=== PATIENT | female | born 1995 | race Native Hawaiian/Other Pacific Islander ===

== ENCOUNTER 2019-12-30 23:36 | Emergency (ER) | payer SELFPAY ==
[2019-12-31 01:55] LABS: Hematocrit 34.1 % (30.3-42.9); Hemoglobin 10.6 gm/dl (10.1-14.3); Mean Corpuscular HGB Conc 31 % (30-34); Mean Corpuscular Volume 74 fl (79-97); Platelet Count 382 K/mm3 (140-440); Red Blood Count 4.59 M/mm3 (3.65-5.03); Red Cell Distribution Width 17.3 % (13.2-15.2)
[2019-12-31 02:20] LABS: Alanine Aminotransferase 9 units/L (7-56); Albumin 4.8 g/dL (3.9-5); BUN/Creatinine Ratio 10; Blood Urea Nitrogen 9 mg/dL (7-17); Calcium 9.8 mg/dL (8.4-10.2); Hemolysis Index 17
[2019-12-31] MEDS ORDERED: SODIUM CHLORIDE 0.9% 1000 ML 1,000 ML ONE (02:26)
[2019-12-31] MEDS ORDERED: FAMOTIDINE 20 MG/2 ML INJ IV ONE (02:30)
[2019-12-31] MEDS ORDERED: METOCLOPRAMIDE 10 MG/2 ML INJ IV ONE (02:30)
[2019-12-31] MEDS ORDERED: diphenhydrAMINE 50 MG/ML VIAL IV ONE (02:30)
[2019-12-31] MEDS ORDERED: diphenhydrAMINE 50 MG/ML VIAL ONE (02:33)
[2019-12-31] MEDS ORDERED: METOCLOPRAMIDE 10 MG/2 ML INJ ONE (02:33)
[2019-12-31 02:41] LABS: Eosinophils % (Manual) 0 % (0.0-4.3); Total Cells Counted 100
[2019-12-31 02:43] LABS: Hypochromasia Few
[2019-12-31 02:44] LABS: Giant Platelets Few; Ovalocytes Few; Platelet Estimate Consistent w Auto; Stomatocytes Rare
[2019-12-31 04:18] LABS: Bacteria,Urine 1+ /HPF (Negative); Bilirubin,Urine NEG (Negative); Blood,Urine NEG (Negative); Color,Urine Yellow (Yellow); Mucus,Urine 2+ /HPF; Urobilinogen,Urine < 2.0 mg/dL (<2.0)
--- NOTE | 2019-12-31 04:27 | Emergency Department Report ---
ED N/V/D HPI - General Chief complaint: Abdominal Pain Stated complaint: ABDOMINAL PAIN Source: patient Mode of arrival: Ambulatory Limitations: No Limitations - History of Present Illness Initial comments: Patient is 24-year-old [place] female with past medical history of chronic anxiety who presents to the ED with complaint of acute onset persistent intractable nausea and vomiting with diffuse abdominal pain for the last 6 hours. Patient states that her symptoms started after eating food from a restaurant. Patient denies fever, chills, dizziness, diarrhea, dysuria, urinary frequency and urgency, headache, chest pain, shortness of breath, nausea bleeding, vaginal discharge, syncope, headache or hematochezia and hematemesis. MD complaint: nausea, vomiting, abdominal pain -: Sudden Description of Vomiting: food contents, watery Description of Diarrhea: other (None) Associated Abdominal Pain: Yes (diffuse) Location: diffuse Radiation: none Severity: severe Pain Scale: 7 Quality: cramping, aching, sharp Consistency: intermittent Improves with: none Worsens with: vomiting Context: possible food poisoning Associated Symptoms: denies other symptoms, loss of appetite, malaise, nausea/vomiting. denies: myalgias, chest pain, cough, diaphoresis, fever/chills, headaches, rash, dysuria, shortness of breath, syncope - Related Data Previous Rx's Medication Instructions Recorded Last Taken Type Dicyclomine [Bentyl] 20 mg PO Q6H PRN #24 tablet 12/31/19 Unknown Rx Famotidine [Pepcid] 20 mg PO Q12H #30 tablet 12/31/19 Unknown Rx Promethazine HCl [Phenergan SUPPOS] 25 mg RC Q6H PRN #12 supp.rect 12/31/19 Unknown Rx Promethazine [Phenergan] 25 mg PO Q6HR PRN #24 tab 12/31/19 Unknown Rx Allergies Allergy/AdvReac Type Severity Reaction Status Date / Time ondansetron [From Zofran] AdvReac Vomiting Verified 12/30/19 23:38 Penicillins AdvReac Vomiting Verified 12/30/19 23:38 ED Review of Systems ROS: Stated complaint: ABDOMINAL PAIN Other details as noted in HPI Constitutional: denies: chills, fever Eyes: denies: eye pain, eye discharge, vision change ENT: denies: ear pain, throat pain Respiratory: denies: cough, shortness of breath, wheezing Cardiovascular: denies: chest pain, palpitations Endocrine: no symptoms reported Gastrointestinal: abdominal pain, nausea, vomiting. denies: diarrhea Genitourinary: denies: urgency, dysuria, discharge Musculoskeletal: denies: back pain, joint swelling, arthralgia Skin: denies: rash, lesions Neurological: denies: headache, weakness, paresthesias Psychiatric: denies: anxiety, depression Hematological/Lymphatic: denies: easy bleeding, easy bruising ED Past Medical Hx - Past Medical History Previous Medical History?: No - Surgical History Past Surgical History?: Yes Additional Surgical History: ECTOPIC - Social History Smoking Status: Never Smoker Substance Use Type: None - Medications Home Medications: Home Medications Medication Instructions Recorded Confirmed Last Taken Type Dicyclomine [Bentyl] 20 mg PO Q6H PRN #24 tablet 12/31/19 Unknown Rx Famotidine [Pepcid] 20 mg PO Q12H #30 tablet 12/31/19 Unknown Rx Promethazine HCl [Phenergan SUPPOS] 25 mg RC Q6H PRN #12 supp.rect 12/31/19 Unknown Rx Promethazine [Phenergan] 25 mg PO Q6HR PRN #24 tab 12/31/19 Unknown Rx ED Physical Exam - General Limitations: No Limitations General appearance: alert, in no apparent distress - Head Head exam: Present: atraumatic, normocephalic, normal inspection - Eye Eye exam: Present: normal appearance, PERRL, EOMI Pupils: Present: normal accommodation - ENT ENT exam: Present: normal exam, normal orophraynx, mucous membranes moist, TM's normal bilaterally, normal external ear exam - Neck Neck exam: Present: normal inspection, full ROM. Absent: tenderness - Respiratory Respiratory exam: Present: normal lung sounds bilaterally. Absent: respiratory distress, wheezes, rales, rhonchi, chest wall tenderness, accessory muscle use, decreased breath sounds - Cardiovascular Cardiovascular Exam: Present: regular rate, normal rhythm, normal heart sounds. Absent: systolic murmur, diastolic murmur, rubs, gallop - GI/Abdominal GI/Abdominal exam: Present: soft, tenderness (mildly diffuse tenderness), normal bowel sounds. Absent: guarding, rebound - Extremities Exam Extremities exam: Present: normal inspection, full ROM, normal capillary refill - Back Exam Back exam: Present: normal inspection, full ROM. Absent: tenderness, CVA tenderness (R), muscle spasm, paraspinal tenderness - Neurological Exam Neurological exam: Present: alert, oriented X3, normal gait, reflexes normal - Psychiatric Psychiatric exam: Present: normal affect, normal mood, anxious - Skin Skin exam: Present: warm, dry, intact, normal color. Absent: rash ED Course Vital Signs 12/30/19 12/31/19 23:43 00:55 Temperature 97.6 F Respiratory 18 Rate Blood Pressure 119/47 O2 Sat by Pulse 100 Oximetry ED Medical Decision Making - Lab Data Result diagrams: 12/31/19 01:09 12/31/19 01:09 - Medical Decision Making This is a 24-year-old female who presented to the ED with acute onset persistent nausea and vomiting with diffuse abdominal pain for 6 hours after eating at a restaurant. In the ED, patient is alert and oriented 3 and is not in distress but anxious. Patient was treated for nausea and vomiting and also given normal saline 1 L IV bolus. Lab test results were reviewed and showed acute leukocytosis of 11,500 and hyperglycemia 167 mg/dL. The rest of the left wrist is also unremarkable including urinalysis. Patient's symptoms are likely due to a viral gastroenteritis from food poisoning. Other differential diagnosis were also considered including urinary tract infection, dehydration, gallstones, gastritis, GERD as well as . On reevaluation, patient's nausea and vomiting has resolved, patient sleeping comfortably in the room in no distress. Patient was discharged home on antiemetics, antacids, and pain medications and advised follow-up with her primary care physician in 5-7 days for reevaluation, meanwhile maintain a clear liquid diet for 12-24 hours. Patient was advised to return to the ED immediately if symptoms get worse. - Differential Diagnosis Gastroenteritis; GERD; Gastritis; ; UTI; Pancreatitis; Gallstones Critical care attestation.: If time is entered above; I have spent that time in minutes in the direct care of this critically ill patient, excluding procedure time. ED Disposition Clinical Impression: Nausea and vomiting in adult, Viral gastroenteritis Abdominal pain Qualifiers: Abdominal location: generalized Qualified Code(s): R10.84 - Generalized abdominal pain Disposition: TO HOME OR SELFCARE Is pt being admited?: No Does the pt Need Aspirin: No Condition: Stable Instructions: Abdominal Pain (ED), Gastroenteritis (ED), Acute Nausea and Vomiting (ED) Additional Instructions: Maintain a clear liquid diet for 12-24 hours, take medications as needed for nausea and vomiting and pain. Follow-up with your primary care physician in 5-7 days for reevaluation or return to the ED immediately if symptoms get worse. Prescriptions: Dicyclomine [Bentyl] 20 mg PO Q6H PRN #24 tablet PRN Reason: abdominal pain Famotidine [Pepcid] 20 mg PO Q12H #30 tablet Promethazine [Phenergan] 25 mg PO Q6HR PRN #24 tab PRN Reason: Nausea Promethazine HCl [Phenergan SUPPOS] 25 mg RC Q6H PRN #12 supp.rect PRN Reason: Nausea Referrals: [facility] [Outside] - 3-5 Days Forms: Work/School Release Form(ED) Time of Disposition: 04:27 Print Language: ARABIC
[2019-12-31 04:50] VITALS: BP 140/51
== END 2019-12-31 04:50 | disposition home or self-care (01) ==
LOC: ED 23:36
DX: K21.9 Gastro-esophageal reflux disease without esophagitis (principal)
CPT/HCPCS: 36415; 80053; 81001; 83690; 84703; 85007; 85025; 96374; 96375; 99283; J1200; J2765; J7030

== ENCOUNTER 2020-03-21 15:44 | Emergency (ER) | payer SELFPAY ==
[2020-03-21 16:06] VITALS: BP 109/65
[2020-03-21] MEDS ORDERED: LIDOCAINE JELLY (2%) 5 ML TOPICAL TP ONE (17:36)
[2020-03-21] MEDS ORDERED: KETOROLAC 30 MG/1 ML INJ IM ONE (17:36)
--- NOTE | 2020-03-21 17:37 | Emergency Department Report ---
ED Abdominal Pain HPI - General Chief Complaint: Rectal Pain Stated Complaint: HERNIA PAIN Time Seen by Provider: 03/21/20 17:18 Source: patient Mode of arrival: Ambulatory Limitations: No Limitations - History of Present Illness Initial Comments: This is a 24-year-old -[place] Citizen female who presents to the emergency room with rectal pain that started last night. Past medical history of GERD. Patient states she noticed some swelling and redness around her rectum. Reports worsening pain while sitting or movement. Denies bleeding, constipation, or tarry stools. MD Complaint: other (Rectal pain) -: Last night Severity scale (0 -10): 10 Quality: stabbing Consistency: constant Worsens With: movement, other (sitting) Associated Symptoms: denies other symptoms - Related Data Previous Rx's Medication Instructions Recorded Last Taken Type Dicyclomine [Bentyl] 20 mg PO Q6H PRN #24 tablet 12/31/19 Unknown Rx Famotidine [Pepcid] 20 mg PO Q12H #30 tablet 12/31/19 Unknown Rx Promethazine HCl [Phenergan SUPPOS] 25 mg RC Q6H PRN #12 supp.rect 12/31/19 Unknown Rx Promethazine [Phenergan] 25 mg PO Q6HR PRN #24 tab 12/31/19 Unknown Rx Hydrocortisone [Anucort-HC SUPPOS] 25 mg RC BID #14 supp.rect 03/21/20 Unknown Rx Hydrocortisone [Proctosol-Hc 2.5% 10 applic TP BID #1 crm.pe.desire 03/21/20 Unknown Rx TOP CREAM] Allergies Allergy/AdvReac Type Severity Reaction Status Date / Time ondansetron [From Zofran] AdvReac Vomiting Verified 03/21/20 15:45 Penicillins AdvReac Vomiting Verified 03/21/20 15:45 ED Review of Systems ROS: Stated complaint: HERNIA PAIN Other details as noted in HPI Constitutional: denies: chills, fever Respiratory: denies: cough, shortness of breath, wheezing Cardiovascular: denies: chest pain, palpitations Gastrointestinal: other (rectal pain). denies: abdominal pain, nausea, diarrhea Skin: denies: rash, lesions Neurological: denies: headache, weakness, paresthesias Psychiatric: denies: anxiety, depression ED Past Medical Hx - Past Medical History Previous Medical History?: Yes Hx Psychiatric Treatment: Yes (Anxiety) - Surgical History Additional Surgical History: ECTOPIC - Social History Smoking Status: Current Every Day Smoker Substance Use Type: None - Medications Home Medications: Home Medications Medication Instructions Recorded Confirmed Last Taken Type Dicyclomine [Bentyl] 20 mg PO Q6H PRN #24 tablet 12/31/19 Unknown Rx Famotidine [Pepcid] 20 mg PO Q12H #30 tablet 12/31/19 Unknown Rx Promethazine HCl [Phenergan SUPPOS] 25 mg RC Q6H PRN #12 supp.rect 12/31/19 Unknown Rx Promethazine [Phenergan] 25 mg PO Q6HR PRN #24 tab 12/31/19 Unknown Rx Hydrocortisone [Anucort-HC SUPPOS] 25 mg RC BID #14 supp.rect 03/21/20 Unknown Rx Hydrocortisone [Proctosol-Hc 2.5% 10 applic TP BID #1 crm.pe.desire 03/21/20 Unknown Rx TOP CREAM] ED Physical Exam - General Limitations: No Limitations General appearance: alert, in no apparent distress - Respiratory Respiratory exam: Present: normal lung sounds bilaterally. Absent: respiratory distress - Cardiovascular Cardiovascular Exam: Present: regular rate, normal rhythm. Absent: systolic murmur, diastolic murmur, rubs, gallop - GI/Abdominal GI/Abdominal exam: Present: soft, normal bowel sounds. Absent: distended, tenderness, guarding, rebound, rigid - Rectal Rectal exam: Present: normal inspection, hemorrhoids (Beefy red external hemorrhoids, TTP). Absent: heme (-) stool, black stool, bloody stool, fecal impaction, mass, tenderness - Extremities Exam Extremities exam: Present: normal inspection - Neurological Exam Neurological exam: Present: alert, oriented X3, normal gait - Psychiatric Psychiatric exam: Present: normal affect, normal mood - Skin Skin exam: Present: warm, dry, intact, normal color. Absent: rash ED Course Vital Signs 03/21/20 03/21/20 16:01 19:39 Temperature 97.7 F Pulse Rate 104 H 89 Respiratory 20 16 Rate Blood Pressure 109/65 O2 Sat by Pulse 99 Oximetry ED Medical Decision Making - Medical Decision Making This is a 24-year-old female who presents to the emergency room with rectal pain since last night. Vitals are stable and patient. Patient has history and exam is most consistent with external hemorrhoids for cause of pain. There were no signs of thrombosed hemorrhoids. Symptoms are least likely related to anal rectal abscess, rectal foreign body, anal fissure, fistula, and proctitis. Patient given instructions on bowel regimen and sitz bath for 15 minutes 3 times a day and after each bowel movement. Start hydrocortisone suppositories and Proctofoam. Patient discharged home with strict return instructions. Critical care attestation.: If time is entered above; I have spent that time in minutes in the direct care of this critically ill patient, excluding procedure time. ED Disposition Clinical Impression: Hemorrhoids, external Disposition: DC-01 TO HOME OR SELFCARE Is pt being admited?: No Condition: Stable Instructions: Hemorrhoids (ED), High Fiber Diet (ED), Sitz Bath (GEN) Additional Instructions: Increase fluid intake to 1L-2L per day. Increase fiber intake by food or taking Metamucil. Start doing sitz bath for 15 minutes 3 times a day and after each bowel movement Prescriptions: Hydrocortisone [Anucort-HC SUPPOS] 25 mg RC BID #14 supp.rect Hydrocortisone [Proctosol-Hc 2.5% TOP CREAM] 10 applic TP BID #1 crm.pe.desire Referrals: [facility] [Outside] - 3-5 Days [facility] [Outside] - 3-5 Days AIXA SNIDER MD [Staff Physician] - 3-5 Days Time of Disposition: 19:19
[2020-03-21] MEDS ORDERED: HYDROcodone/ACETAMINOPHEN 5-325 MG TAB PO ONE (19:29)
== END 2020-03-21 19:39 | disposition home or self-care (01) ==
LOC: ED 15:44
DX: K64.4 Residual hemorrhoidal skin tags (principal); F41.9 Anxiety disorder, unspecified; F17.200 Nicotine dependence, unspecified, uncomplicated; Z79.899 Other long term (current) drug therapy
CPT/HCPCS: 99283; J1885

== ENCOUNTER 2020-04-23 13:42 | Emergency (ER) | payer SELFPAY ==
[2020-04-23 16:16] LABS: Mean Corpuscular HGB Conc 29 % (30-34); Mean Corpuscular Volume 75 fl (79-97); Platelet Count 448 K/mm3 (140-440); Red Blood Count 5.18 M/mm3 (3.65-5.03); Red Cell Distribution Width 17.4 % (13.2-15.2)
[2020-04-23] MEDS ORDERED: MORPHINE 4 MG/1 ML INJ IV ONE (16:20)
[2020-04-23] MEDS ORDERED: SODIUM CHLORIDE 0.9% 1000 ML 1,000 ML IV ONE (16:20)
[2020-04-23] MEDS ORDERED: METOCLOPRAMIDE 10 MG/2 ML INJ IV ONE (16:20)
[2020-04-23] MEDS ORDERED: diphenhydrAMINE 50 MG/ML VIAL IV ONE (16:20)
[2020-04-23 16:23] LABS: Hematocrit 39.1 % (30.3-42.9); Hemoglobin 11.5 gm/dl (10.1-14.3)
--- NOTE | 2020-04-23 16:24 | Emergency Department Report ---
ED N/V/D HPI - General Chief complaint: Abdominal Pain Stated complaint: VOMITING Time Seen by Provider: 04/23/20 16:05 Source: patient, EMS Mode of arrival: Ambulatory Limitations: No Limitations - History of Present Illness Initial comments: Patient is a 24-year-old female presents emergency room with complaints of nausea, vomiting, diarrhea that began 5 hours prior to arrival. She has associated lower abdominal pain. She denies any urinary symptoms, vaginal discharge, hematochezia, hematemesis, melena. She denies any sick contacts or recent travel. She denies any recent antibiotics. She has a past medical history of anxiety. She has an allergy to Zofran and penicillin. She states her last menstrual cycle was 03/03/2020. - Related Data Previous Rx's Medication Instructions Recorded Last Taken Type Dicyclomine [Bentyl] 20 mg PO Q6H PRN #24 tablet 12/31/19 Unknown Rx Famotidine [Pepcid] 20 mg PO Q12H #30 tablet 12/31/19 Unknown Rx Promethazine HCl [Phenergan SUPPOS] 25 mg RC Q6H PRN #12 supp.rect 12/31/19 Unknown Rx Promethazine [Phenergan] 25 mg PO Q6HR PRN #24 tab 12/31/19 Unknown Rx Hydrocortisone [Anucort-HC SUPPOS] 25 mg RC BID #14 supp.rect 03/21/20 Unknown Rx Hydrocortisone [Proctosol-Hc 2.5% 10 applic TP BID #1 crm.pe.desire 03/21/20 Unknown Rx TOP CREAM] Hyoscyamine Subl [Levsin Sl 0.125 0.125 mg SL Q6HR PRN #10 tab 04/23/20 Unknown Rx TAB] Metoclopramide [Reglan] 10 mg PO Q8HR PRN #12 tab 04/23/20 Unknown Rx Allergies Allergy/AdvReac Type Severity Reaction Status Date / Time ondansetron [From Zofran] AdvReac Vomiting Verified 03/21/20 15:45 Penicillins AdvReac Vomiting Verified 03/21/20 15:45 ED Review of Systems ROS: Stated complaint: VOMITING Other details as noted in HPI Comment: All other systems reviewed and negative ED Past Medical Hx - Past Medical History Previous Medical History?: Yes Hx Psychiatric Treatment: Yes (Anxiety) - Surgical History Past Surgical History?: Yes Additional Surgical History: ECTOPIC - Social History Smoking Status: Current Every Day Smoker Substance Use Type: None - Medications Home Medications: Home Medications Medication Instructions Recorded Confirmed Last Taken Type Dicyclomine [Bentyl] 20 mg PO Q6H PRN #24 tablet 12/31/19 Unknown Rx Famotidine [Pepcid] 20 mg PO Q12H #30 tablet 12/31/19 Unknown Rx Promethazine HCl [Phenergan SUPPOS] 25 mg RC Q6H PRN #12 supp.rect 12/31/19 Unknown Rx Promethazine [Phenergan] 25 mg PO Q6HR PRN #24 tab 12/31/19 Unknown Rx Hydrocortisone [Anucort-HC SUPPOS] 25 mg RC BID #14 supp.rect 03/21/20 Unknown Rx Hydrocortisone [Proctosol-Hc 2.5% 10 applic TP BID #1 crm.pe.desire 03/21/20 Unknown Rx TOP CREAM] Hyoscyamine Subl [Levsin Sl 0.125 0.125 mg SL Q6HR PRN #10 tab 04/23/20 Unknown Rx TAB] Metoclopramide [Reglan] 10 mg PO Q8HR PRN #12 tab 04/23/20 Unknown Rx ED Physical Exam - General Limitations: No Limitations General appearance: alert, in no apparent distress - Head Head exam: Present: atraumatic, normocephalic - Eye Eye exam: Present: normal appearance - ENT ENT exam: Present: mucous membranes moist - Respiratory Respiratory exam: Present: normal lung sounds bilaterally. Absent: respiratory distress, wheezes, rales, rhonchi, stridor, chest wall tenderness, accessory muscle use, decreased breath sounds, prolonged expiratory - Cardiovascular Cardiovascular Exam: Present: regular rate, normal rhythm, normal heart sounds. Absent: systolic murmur, diastolic murmur, rubs, gallop - GI/Abdominal GI/Abdominal exam: Present: soft, tenderness (generalized lower), normal bowel sounds. Absent: distended, guarding, rebound, rigid - Neurological Exam Neurological exam: Present: alert, oriented X3 - Psychiatric Psychiatric exam: Present: normal affect, normal mood - Skin Skin exam: Present: warm, dry, intact ED Course Vital Signs 04/23/20 04/23/20 14:00 20:26 Temperature 98.2 F 98.5 F Pulse Rate 70 66 Respiratory 14 18 Rate Blood Pressure 133/73 Blood Pressure 133/73 136/85 [Right] O2 Sat by Pulse 99 98 Oximetry - Reevaluation(s) Reevaluation #1: 04/23/20 18:[address] regarding the delay in CT, she states that they had a code stroke and will take the patient next ED Medical Decision Making - Lab Data Result diagrams: 04/23/20 15:39 04/23/20 15:39 Lab Results 04/23/20 04/23/20 04/23/20 Range/Units 15:39 15:39 15:39 WBC 16.3 H (4.5-11.0) K/mm3 RBC 5.18 H (3.65-5.03) M/mm3 Hgb 11.5 (10.1-14.3) gm/dl Hct 39.1 (30.3-42.9) % MCV 75 L (79-97) fl MCH 22 L (28-32) pg MCHC 29 L (30-34) % RDW 17.4 H (13.2-15.2) % Plt Count 448 H (140-440) K/mm3 Add Manual Diff Complete Total Counted 100 Seg Neutrophils % Lab Tester Seg Neuts % (Manual) 85.0 H (40.0-70.0) % Band Neutrophils % 0 % Lymphocytes % (Manual) 11.0 L (13.4-35.0) % Reactive Lymphs % (Man) 0 % Monocytes % (Manual) 3.0 (0.0-7.3) % Eosinophils % (Manual) 0 (0.0-4.3) % Basophils % (Manual) 1.0 (0.0-1.8) % Metamyelocytes % 0 % Myelocytes % 0 % Promyelocytes % 0 % Blast Cells % 0 % Nucleated RBC % Not Reportable Seg Neutrophils # Man 13.9 H (1.8-7.7) K/mm3 Band Neutrophils # 0.0 K/mm3 Lymphocytes # (Manual) 1.8 (1.2-5.4) K/mm3 Abs React Lymphs (Man) 0.0 K/mm3 Monocytes # (Manual) 0.5 (0.0-0.8) K/mm3 Eosinophils # (Manual) 0.0 (0.0-0.4) K/mm3 Basophils # (Manual) 0.2 H (0.0-0.1) K/mm3 Metamyelocytes # 0.0 K/mm3 Myelocytes # 0.0 K/mm3 Promyelocytes # 0.0 K/mm3 Blast Cells # 0.0 K/mm3 WBC Morphology Not Reportable Hypersegmented Neuts Not Reportable Hyposegmented Neuts Not Reportable Hypogranular Neuts Not Reportable Smudge Cells Not Reportable Toxic Granulation Not Reportable Toxic Vacuolation Not Reportable Dohle Bodies Not Reportable Pelger-Huet Anomaly Not Reportable James Rods Not Reportable Platelet Estimate Consistent w auto Clumped Platelets Not Reportable Plt Clumps, EDTA Not Reportable Large Platelets Few Giant Platelets Not Reportable Platelet Satelliting Not Reportable Plt Morphology Comment Not Reportable RBC Morphology Not Reportable Dimorphic RBCs Not Reportable Polychromasia Rare Hypochromasia Not Reportable Poikilocytosis Not Reportable Anisocytosis 1+ Microcytosis Few Macrocytosis Few Spherocytes Not Reportable Pappenheimer Bodies Not Reportable Sickle Cells Not Reportable Target Cells Not Reportable Tear Drop Cells Not Reportable Ovalocytes Few Stomatocytes Rare Helmet Cells Not Reportable [place] Bodies Not Reportable [place] Rings Not Reportable [place] Cells Not Reportable Bite Cells Not Reportable Crenated Cell Not Reportable Elliptocytes Not Reportable Acanthocytes (Spur) Not Reportable Rouleaux Not Reportable Hemoglobin C Crystals Not Reportable Schistocytes Not Reportable Malaria parasites Not Reportable Francisco Bodies Not Reportable Hem Pathologist Commnt No Sodium 143 (137-145) mmol/L Potassium 4.1 (3.6-5.0) mmol/L Chloride 99.4 (98-107) mmol/L Carbon Dioxide 20 L (22-30) mmol/L Anion Gap 28 mmol/L BUN 10 (7-17) mg/dL Creatinine 0.9 (0.7-1.2) mg/dL Estimated GFR > 60 ml/min BUN/Creatinine Ratio 11 % Glucose 107 H (65-100) mg/dL Calcium 10.2 (8.4-10.2) mg/dL Total Bilirubin 0.50 (0.1-1.2) mg/dL AST 19 (5-40) units/L ALT 11 (7-56) units/L Alkaline Phosphatase 86 (35-129) units/L Total Protein 8.9 H (6.3-8.2) g/dL Albumin 5.1 H (3.9-5) g/dL Albumin/Globulin Ratio 1.3 % Lipase 13 (13-60) units/L HCG, Qual Negative (Negative) Urine Color (Yellow) Urine Turbidity (Clear) Urine pH (5.0-7.0) Ur Specific Carlotta (1.003-1.030) Urine Protein (Negative) mg/dL Urine Glucose (UA) (Negative) mg/dL Urine Ketones (Negative) mg/dL Urine Blood (Negative) Urine Nitrite (Negative) Urine Bilirubin (Negative) Urine Urobilinogen (<2.0) mg/dL Ur Leukocyte Esterase (Negative) Urine WBC (Auto) (0.0-6.0) /HPF Urine RBC (Auto) (0.0-6.0) /HPF U Epithel Cells (Auto) (0-13.0) /HPF Urine Mucus /HPF 05/26/20 Range/Units 18:18 WBC (4.5-11.0) K/mm3 RBC (3.65-5.03) M/mm3 Hgb (10.1-14.3) gm/dl Hct (30.3-42.9) % MCV (79-97) fl MCH (28-32) pg MCHC (30-34) % RDW (13.2-15.2) % Plt Count (140-440) K/mm3 Add Manual Diff Total Counted Seg Neutrophils % Seg Neuts % (Manual) (40.0-70.0) % Band Neutrophils % % Lymphocytes % (Manual) (13.4-35.0) % Reactive Lymphs % (Man) % Monocytes % (Manual) (0.0-7.3) % Eosinophils % (Manual) (0.0-4.3) % Basophils % (Manual) (0.0-1.8) % Metamyelocytes % % Myelocytes % % Promyelocytes % % Blast Cells % % Nucleated RBC % Seg Neutrophils # Man (1.8-7.7) K/mm3 Band Neutrophils # K/mm3 Lymphocytes # (Manual) (1.2-5.4) K/mm3 Abs React Lymphs (Man) K/mm3 Monocytes # (Manual) (0.0-0.8) K/mm3 Eosinophils # (Manual) (0.0-0.4) K/mm3 Basophils # (Manual) (0.0-0.1) K/mm3 Metamyelocytes # K/mm3 Myelocytes # K/mm3 Promyelocytes # K/mm3 Blast Cells # K/mm3 WBC Morphology Hypersegmented Neuts Hyposegmented Neuts Hypogranular Neuts Smudge Cells Toxic Granulation Toxic Vacuolation Dohle Bodies Pelger-Huet Anomaly James Rods Platelet Estimate Clumped Platelets Plt Clumps, EDTA Large Platelets Giant Platelets Platelet Satelliting Plt Morphology Comment RBC Morphology Dimorphic RBCs Polychromasia Hypochromasia Poikilocytosis Anisocytosis Microcytosis Macrocytosis Spherocytes Pappenheimer Bodies Sickle Cells Target Cells Tear Drop Cells Ovalocytes Stomatocytes Helmet Cells [place] Bodies [place] Rings Freddie Cells Bite Cells Crenated Cell Elliptocytes Acanthocytes (Spur) Rouleaux Hemoglobin C Crystals Schistocytes Malaria parasites Francisco Bodies Hem Pathologist Commnt Sodium (137-145) mmol/L Potassium (3.6-5.0) mmol/L Chloride (98-107) mmol/L Carbon Dioxide (22-30) mmol/L Anion Gap mmol/L BUN (7-17) mg/dL Creatinine (0.7-1.2) mg/dL Estimated GFR ml/min BUN/Creatinine Ratio % Glucose (65-100) mg/dL Calcium (8.4-10.2) mg/dL Total Bilirubin (0.1-1.2) mg/dL AST (5-40) units/L ALT (7-56) units/L Alkaline Phosphatase (35-129) units/L Total Protein (6.3-8.2) g/dL Albumin (3.9-5) g/dL Albumin/Globulin Ratio % Lipase (13-60) units/L HCG, Qual (Negative) Urine Color Yellow (Yellow) Urine Turbidity Clear (Clear) Urine pH 7.0 (5.0-7.0) Ur Specific Carlotta 1.024 (1.003-1.030) Urine Protein 30 mg/dl (Negative) mg/dL Urine Glucose (UA) Neg (Negative) mg/dL Urine Ketones 80 (Negative) mg/dL Urine Blood Neg (Negative) Urine Nitrite Neg (Negative) Urine Bilirubin Neg (Negative) Urine Urobilinogen < 2.0 (<2.0) mg/dL Ur Leukocyte Esterase Tr (Negative) Urine WBC (Auto) 4.0 (0.0-6.0) /HPF Urine RBC (Auto) 2.0 (0.0-6.0) /HPF U Epithel Cells (Auto) 10.0 (0-13.0) /HPF Urine Mucus 3+ /HPF - Radiology Data Radiology results: report reviewed CT abdomen pelvis w con INDICATION: lower abd pain, n/v/d, elevated WBC. TECHNIQUE: All CT scans at this location are performed using CT dose reduction for ALARA by means of automated exposure control. COMPARISON: None available. FINDINGS: Lung bases are clear. Liver, gallbladder, spleen, pancreas, kidneys and adrenals are negative. Abdominal aorta is normal in size. No adenopathy. Pelvis Appendix is normal. Uterus and ovaries appear unremarkable. The transverse colon is collapsed, but I do not see significant laboratory change in the colon or other bowel. No free fluid. IMPRESSION: 1. No acute abnormalities. Signer Name: Douglas Birch MD Signed: 04/23/2020 7:43 PM Workstation Name: [id number] Transcribed By: TM Dictated By: Douglas Birch MD Electronically Authenticated By: Douglas Birch MD Signed Date/Time: 04/23/201942 DD/ 39 TD/TT: - Medical Decision Making Patient is a 24-year-old female presents emergency room with complaints of nausea, vomiting, diarrhea that began 5 hours prior to arrival. She has associated lower abdominal pain. She denies any urinary symptoms, vaginal discharge, hematochezia, hematemesis, melena. She denies any sick contacts or recent travel. She denies any recent antibiotics. She has a past medical history of anxiety. She has an allergy to Zofran and penicillin. She states her last menstrual cycle was 03/03/2020. vitals are normal. On exam: Generalized lower abdominal tenderness to palpation, no guarding, no rebound, no rigidity, no peritoneal signs, normal bowel sounds. Labs with white blood cell count of 16,000, otherwise stable. UA without evidence of UTI, shows evidence of dehydration. Patient given nausea medications and fluids and symptoms improved. She was able to tolerate p.o. intake. Discussed all results with patient. Patient given prescription for Levsin and Reglan. Advised patient Please take medication as prescribed. Increase your fluid intake. Eat a bland diet and slowly advance your diet as tolerated. Avoid anything sugary or greasy. Follow-up with your primary care doctor. Return to emergency room for any new or worsening symptoms. - Differential Diagnosis Gastroenteritis, appendicitis, cholecystitis, colitis, diverticulitis, UTI Critical care attestation.: If time is entered above; I have spent that time in minutes in the direct care of this critically ill patient, excluding procedure time. ED Disposition Clinical Impression: Nausea vomiting and diarrhea Abdominal pain Qualifiers: Abdominal location: lower abdomen, unspecified Qualified Code(s): R10.30 - Lower abdominal pain, unspecified Disposition: TO HOME OR SELFCARE Is pt being admited?: No Does the pt Need Aspirin: No Condition: Stable Instructions: Gastroenteritis (ED) Additional Instructions: Please take medication as prescribed. Increase your fluid intake. Eat a bland diet and slowly advance your diet as tolerated. Avoid anything sugary or greasy. Follow-up with your primary care doctor. Return to emergency room for any new or worsening symptoms. Prescriptions: Hyoscyamine Subl [Levsin Sl 0.125 TAB] 0.125 mg SL Q6HR PRN #10 tab PRN Reason: abdominal cramping/diarrhea Metoclopramide [Reglan] 10 mg PO Q8HR PRN #12 tab PRN Reason: Nausea And Vomiting Referrals: NATHALY ROBERTS MD [Staff Physician] - 3-5 Days [facility] [Provider Group] - 3-5 Days Time of Disposition: 19:53 Print Language: LUXEMBOURGISH
[2020-04-23 16:53] LABS: Alanine Aminotransferase 11 units/L (7-56); Albumin 5.1 g/dL (3.9-5); BUN/Creatinine Ratio 11; Blood Urea Nitrogen 10 mg/dL (7-17); Calcium 10.2 mg/dL (8.4-10.2); Hemolysis Index 1
[2020-04-23 17:34] LABS: Eosinophils % (Manual) 0 % (0.0-4.3); Total Cells Counted 100
[2020-04-23 17:35] LABS: Anisocytosis 1+; Macrocytosis Few; Ovalocytes Few; Stomatocytes Rare
[2020-04-23 17:36] LABS: Large Platelets Few; Platelet Estimate Consistent w Auto
[2020-04-23 19:16] LABS: Bilirubin,Urine NEG (Negative); Blood,Urine NEG (Negative); Color,Urine Yellow (Yellow); Mucus,Urine 3+ /HPF; Urobilinogen,Urine < 2.0 mg/dL (<2.0)
--- NOTE | 2020-04-23 19:47 | Cat Scan Report ---
CT abdomen pelvis w con INDICATION: lower abd pain, n/v/d, elevated WBC. TECHNIQUE: All CT scans at this location are performed using CT dose reduction for ALARA by means of automated e xposure control. COMPARISON: None available. FINDINGS: Lung bases are clear. Liver, gallbladder, spleen, pancreas, kidneys and adrenals are negative. Abdomi nal aorta is normal in size. No adenopathy. Pelvis Appendix is normal. Uterus and ovaries appear unremarkable. The transverse colon is collapsed, but I do not see significant laboratory change in the colon or other bowel. No free fluid. IMPRESSION: 1. No acute abnormalities. Signer Name: Douglas Birch MD Signed: 04/23/2020 7:43 PM Workstation Name: [id number]
[2020-04-23] MEDS ORDERED: PROCHLORPERAZINE EDISYLATE 10 MG/2 ML VIAL IV ONE (19:58)
[2020-04-23 20:27] VITALS: BP 136/85
== END 2020-04-23 21:01 | disposition home or self-care (01) ==
LOC: ED 13:42
DX: R11.2 Nausea with vomiting, unspecified (principal); R19.7 Diarrhea, unspecified; R10.30 Lower abdominal pain, unspecified; F17.200 Nicotine dependence, unspecified, uncomplicated; Z88.6 Allergy status to analgesic agent
CPT/HCPCS: 36415; 74177; 80053; 81001; 83690; 84703; 85007; 85025; 96361; 96374; 96375; 99284; J0780; J1200; J2270; J2765; J7030; Q9967

== ENCOUNTER 2020-10-15 15:19 | Emergency (ER) | payer SELFPAY ==
[2020-10-15] MEDS ORDERED: oxyCODONE /ACETAMINOPHEN 5-325MG TAB PO ONE ×2 (15:30→21:46)
[2020-10-15 15:31] VITALS: BP 125/64
--- NOTE | 2020-10-15 15:32 | Event Note ---
ED Screening Note Date of service: 10/15/20 Time: 15:31 ED Screening Note: Patient complains of left facial swelling and pain x3 days Some difficulty opening the jaw noted on exam This initial assessment/diagnostic orders/clinical plan/treatment(s) is/are subject to change based on patients health status, clinical progression and re- assessment by fellow clinical providers in the ED. Further treatment and workup at subsequent clinical providers discretion. Patient/guardian urged not to elope from the ED as their condition may be serious if not clinically assessed and managed. Initial orders include: CT Labs Percocet
[2020-10-15 16:53] LABS: Basophils % (Auto) 0.5 % (0.0-1.8); Eosinophils % (Auto) 1.9 % (0.0-4.3); Hematocrit 35.9 % (30.3-42.9); Hemoglobin 11.3 gm/dl (10.1-14.3); Lymphocytes # (Auto) 1.7 K/mm3 (1.2-5.4); Lymphocytes % (Auto) 14.3 % (13.4-35.0); Mean Corpuscular HGB Conc 32 % (30-34); Mean Corpuscular Volume 77 fl (79-97); Monocytes # (Auto) 0.9 K/mm3 (0.0-0.8); Monocytes % (Auto) 7.5 % (0.0-7.3); Platelet Count 427 K/mm3 (140-440); Red Blood Count 4.67 M/mm3 (3.65-5.03); Red Cell Distribution Width 17.2 % (13.2-15.2)
[2020-10-15 16:54] LABS: Basophils # (Auto) 0.1 K/mm3 (0.0-0.1); Eosinophils # (Auto) 0.2 K/mm3 (0.0-0.4)
[2020-10-15 16:55] LABS: BUN/Creatinine Ratio 9; Blood Urea Nitrogen 7 mg/dL (7-17); Calcium 9.2 mg/dL (8.4-10.2); Hemolysis Index 6
--- NOTE | 2020-10-15 21:43 | Emergency Department Report ---
ED ENT HPI - General Chief complaint: Dental/Oral Stated complaint: ABSESS IN MOUTH Time Seen by Provider: 10/15/20 15:29 Source: patient Mode of arrival: Ambulatory Limitations: No Limitations - History of Present Illness Initial comments: 25-year-old F [place] female just emerged department complaining of a couple day history of dull throbbing pain to the left lower mandible region and swelling to. She reports pain to the tooth with with eating and palpation. Reports no fever, chills, sweats no hemoptysis no hematemesis no hematochezia no abdominal pain no nausea vomiting MD complaint: tooth pain -: Gradual Location: tooth # Severity: mild, moderate Quality: aching, dull Consistency: constant (5g) Context- Dental: history of dental caries, other (Denies Trauma) - Related Data Previous Rx's Medication Instructions Recorded Last Taken Type Dicyclomine [Bentyl] 20 mg PO Q6H PRN #24 tablet 12/31/19 Unknown Rx Famotidine [Pepcid] 20 mg PO Q12H #30 tablet 12/31/19 Unknown Rx Promethazine HCl [Phenergan SUPPOS] 25 mg RC Q6H PRN #12 supp.rect 12/31/19 Unknown Rx Promethazine [Phenergan] 25 mg PO Q6HR PRN #24 tab 12/31/19 Unknown Rx Hydrocortisone [Anucort-HC SUPPOS] 25 mg RC BID #14 supp.rect 03/21/20 Unknown Rx Hydrocortisone [Proctosol-Hc 2.5% 10 applic TP BID #1 crm.pe.desire 03/21/20 Unknown Rx TOP CREAM] Hyoscyamine Subl [Levsin Sl 0.125 0.125 mg SL Q6HR PRN #10 tab 04/23/20 Unknown Rx TAB] Metoclopramide [Reglan] 10 mg PO Q8HR PRN #12 tab 04/23/20 Unknown Rx Chlorhexidine Mouthwash [Peridex] 15 ml MM BID #1 bottle 10/15/20 Unknown Rx Clindamycin [Clindamycin CAP] 300 mg PO Q8HR #30 capsule 10/15/20 Unknown Rx Ketorolac [Toradol] 10 mg PO Q6H PRN #15 tablet 10/15/20 Unknown Rx Lidocaine Viscous 2% 5 ml MM Q3H PRN #120 udc 10/15/20 Unknown Rx Allergies Allergy/AdvReac Type Severity Reaction Status Date / Time ondansetron [From Zofran] AdvReac Vomiting Verified 03/21/20 15:45 Penicillins AdvReac Vomiting Verified 03/21/20 15:45 ED Dental HPI - General Chief complaint: Dental/Oral Stated complaint: ABSESS IN MOUTH Time Seen by Provider: 10/15/20 15:29 Source: patient Mode of arrival: Ambulatory Limitations: No Limitations - Related Data Previous Rx's Medication Instructions Recorded Last Taken Type Dicyclomine [Bentyl] 20 mg PO Q6H PRN #24 tablet 12/31/19 Unknown Rx Famotidine [Pepcid] 20 mg PO Q12H #30 tablet 12/31/19 Unknown Rx Promethazine HCl [Phenergan SUPPOS] 25 mg RC Q6H PRN #12 supp.rect 12/31/19 Unknown Rx Promethazine [Phenergan] 25 mg PO Q6HR PRN #24 tab 12/31/19 Unknown Rx Hydrocortisone [Anucort-HC SUPPOS] 25 mg RC BID #14 supp.rect 03/21/20 Unknown Rx Hydrocortisone [Proctosol-Hc 2.5% 10 applic TP BID #1 crm.pe.desire 03/21/20 Unknown Rx TOP CREAM] Hyoscyamine Subl [Levsin Sl 0.125 0.125 mg SL Q6HR PRN #10 tab 04/23/20 Unknown Rx TAB] Metoclopramide [Reglan] 10 mg PO Q8HR PRN #12 tab 04/23/20 Unknown Rx Chlorhexidine Mouthwash [Peridex] 15 ml MM BID #1 bottle 10/15/20 Unknown Rx Clindamycin [Clindamycin CAP] 300 mg PO Q8HR #30 capsule 10/15/20 Unknown Rx Ketorolac [Toradol] 10 mg PO Q6H PRN #15 tablet 10/15/20 Unknown Rx Lidocaine Viscous 2% 5 ml MM Q3H PRN #120 udc 10/15/20 Unknown Rx Allergies Allergy/AdvReac Type Severity Reaction Status Date / Time ondansetron [From Zofran] AdvReac Vomiting Verified 03/21/20 15:45 Penicillins AdvReac Vomiting Verified 03/21/20 15:45 ED Review of Systems ROS: Stated complaint: ABSESS IN MOUTH Other details as noted in HPI Comment: All other systems reviewed and negative ED Past Medical Hx - Past Medical History Previous Medical History?: Yes Hx Psychiatric Treatment: Yes (Anxiety) - Surgical History Past Surgical History?: Yes Additional Surgical History: ECTOPIC - Social History Smoking Status: Unknown if ever smoked Substance Use Type: None - Medications Home Medications: Home Medications Medication Instructions Recorded Confirmed Last Taken Type Dicyclomine [Bentyl] 20 mg PO Q6H PRN #24 tablet 12/31/19 Unknown Rx Famotidine [Pepcid] 20 mg PO Q12H #30 tablet 12/31/19 Unknown Rx Promethazine HCl [Phenergan SUPPOS] 25 mg RC Q6H PRN #12 supp.rect 12/31/19 Unknown Rx Promethazine [Phenergan] 25 mg PO Q6HR PRN #24 tab 12/31/19 Unknown Rx Hydrocortisone [Anucort-HC SUPPOS] 25 mg RC BID #14 supp.rect 03/21/20 Unknown Rx Hydrocortisone [Proctosol-Hc 2.5% 10 applic TP BID #1 crm.pe.desire 03/21/20 Unknown Rx TOP CREAM] Hyoscyamine Subl [Levsin Sl 0.125 0.125 mg SL Q6HR PRN #10 tab 04/23/20 Unknown Rx TAB] Metoclopramide [Reglan] 10 mg PO Q8HR PRN #12 tab 04/23/20 Unknown Rx Chlorhexidine Mouthwash [Peridex] 15 ml MM BID #1 bottle 10/15/20 Unknown Rx Clindamycin [Clindamycin CAP] 300 mg PO Q8HR #30 capsule 10/15/20 Unknown Rx Ketorolac [Toradol] 10 mg PO Q6H PRN #15 tablet 10/15/20 Unknown Rx Lidocaine Viscous 2% 5 ml MM Q3H PRN #120 udc 10/15/20 Unknown Rx ED Physical Exam - General Limitations: No Limitations General appearance: alert, in no apparent distress - Head Head exam: Present: atraumatic, normocephalic - Expanded Head Exam Expanded 1 - Swelling to the right left mandible - Eye Eye exam: Present: normal appearance - ENT ENT exam: Present: mucous membranes moist, other (Airways patent tongue and uvula are midline no drooling is noted.). Absent: normal orophraynx (Several dental caries are noted. Some swelling and tenderness to the left upper molar as well with some adjacent gingival swelling. No abscess visulized. ) - Neck Neck exam: Present: normal inspection, other (Neck is supple no lymphadenopathy no swelling no enlargement). Absent: tenderness, lymphadenopathy - Respiratory Respiratory exam: Present: normal lung sounds bilaterally. Absent: respiratory distress, wheezes, rales, chest wall tenderness, accessory muscle use - Cardiovascular Cardiovascular Exam: Present: regular rate, normal rhythm. Absent: systolic murmur, diastolic murmur, rubs, gallop - GI/Abdominal GI/Abdominal exam: Present: soft, normal bowel sounds. Absent: tenderness, guarding, hypoactive bowel sounds - Extremities Exam Extremities exam: Present: normal inspection - Back Exam Back exam: Present: normal inspection. Absent: CVA tenderness (R), CVA tenderness (L) - Neurological Exam Neurological exam: Present: alert, oriented X3, CN II-XII intact, normal gait - Psychiatric Psychiatric exam: Present: normal affect, normal mood - Skin Skin exam: Present: warm, dry, intact, normal color. Absent: rash ED Course Vital Signs 10/15/20 10/15/20 15:30 15:33 Temperature 98.4 F Pulse Rate 88 Respiratory 20 20 Rate Blood Pressure 125/64 [Right] O2 Sat by Pulse 100 Oximetry ED Medical Decision Making - Lab Data Result diagrams: 10/15/20 16:25 10/15/20 16:25 Critical care attestation.: If time is entered above; I have spent that time in minutes in the direct care of this critically ill patient, excluding procedure time. ED Disposition Clinical Impression: Dental abscess, Dentalgia, Mandible fracture Disposition: DC- TO HOME OR SELFCARE Is pt being admited?: No Does the pt Need Aspirin: No Condition: Stable Instructions: Dental Abscess, Preventive Dental Care, Adult, Mandibular Fracture, [id number]-[id number], Mandibular Fracture Prescriptions: Clindamycin [Clindamycin CAP] 300 mg PO Q8HR #30 capsule Lidocaine Viscous 2% 5 ml MM Q3H PRN #120 udc PRN Reason: Pain, Moderate (4-6) Chlorhexidine Mouthwash [Peridex] 15 ml MM BID #1 bottle Ketorolac [Toradol] 10 mg PO Q6H PRN #15 tablet PRN Reason: Pain Referrals: PRIMARY CARE,MD [Primary Care Provider] - 3-5 Days [facility] [Outside] - 3-5 Days
--- NOTE | 2020-10-15 22:13 | Cat Scan Report ---
CT neck w con HISTORY: left lower dental pain and facial swelling COMPARISON: None. TECHNIQUE: CT of the neck is performed. All CT scans at this location are performed using CT dose red uction for ALARA by means of automated exposure control. FINDINGS: Bones: There is a fracture extending from the last mandibular molar to the angle of mandible. No sign ificant periapical lucencies. There is a left perimandibular thick walled complex multiseptated fluid collect ion along the body the mandible measuring 3.3 cm as seen on image 31 of series 2. Nasopharynx, oropharynx, hypopharynx: No significant abnormality. No mass identified.. Tonsils: Tonsils appear within normal limits. Airway: Patent and without significant abnormality. Salivary glands: Subcentimeter nodules in the left parotid gland is likely a lymph node.. Thyroid:No significant abnormality. Lymphatics: There are couple prominent level 1 and 2 lymph nodes which are most likely reactive in et iology. 5Vasculature: No significant abnormality. Osseous Structures: No significant abnormality Additional findings: None. IMPRESSION: 1. Fracture extending from the last mandibular molar to the angle of mandible. There is an associated overlying nonspecific fluid collection which extends along the body the mandible which likely repres ents a hematoma given the fracture. An abscess could have a similar appearance but there is no period ontal disease or dental abscess seen. Correlate with clinical history. Signer Name: Lino Carroll MD Signed: 10/15/2020 10:12 PM Workstation Name: [id number]
== END 2020-10-15 22:07 | disposition home or self-care (01) ==
LOC: ED 15:19
DX: S02.69XA Fracture of mandible of other specified site, initial encounter for closed fracture (principal); K04.7 Periapical abscess without sinus; F41.9 Anxiety disorder, unspecified; Z88.6 Allergy status to analgesic agent; Z88.0 Allergy status to penicillin; Z79.899 Other long term (current) drug therapy; X58.XXXA Exposure to other specified factors, initial encounter; Y93.89 Activity, other specified; Y92.89 Other specified places as the place of occurrence of the external cause; Y99.8 Other external cause status
CPT/HCPCS: 36415; 70491; 80048; 84703; 85025; 99284; Q9967

== ENCOUNTER 2021-03-02 11:25 | Emergency (ER) | payer SELFPAY ==
[2021-03-02] MEDS ORDERED: SODIUM CHLORIDE 0.9% 1000 ML 1,000 ML IV ONE ×2 (11:32→15:19)
--- NOTE | 2021-03-02 11:34 | Event Note ---
ED Screening Note Date of service: 03/02/21 Time: 11:33 ED Screening Note: 25-year-old female patient with history of ectopic last year presents to the emergency department with complaints of chest pain, abdominal pain, nausea, vomiting, and diarrhea starting approximately 1 hour ago. Patient states she consumed alcohol yesterday. No known sick contacts. No current steroid or antibiotic use. Last menstrual period was proximally 1 month ago. Unsure if she could be . No other surgical history reported. General: Awake, alert. Appears uncomfortable. Actively vomiting in triage. Neck: Supple. Full range of motion intact. Cardiovascular: Normal peripheral perfusion. Pulmonary: No respiratory distress. Patient is speaking normally without use of accessory muscles. Skin: No apparent rashes or lesions. Neurological: No facial asymmetry. Speech is clear. Follows commands. Patient is alert and oriented. Musculoskeletal: Moves all four extremities spontaneously with normal range of motion. Psych: Cooperative. Appropriate mood and affect. This initial assessment/diagnostic orders/clinical plan/treatment(s) is/are subject to change based on patients health status, clinical progression and re- assessment by fellow clinical providers in the ED. Further treatment and workup at subsequent clinical providers discretion. Patient/guardian urged not to elope from the ED as their condition may be serious if not clinically assessed and managed.
--- NOTE | 2021-03-02 12:19 | XRay Report ---
CHEST 1 VIEW, 03/02/2021 11:57 AM CLINICAL INFORMATION/INDICATION: Chest pain COMPARISON: None. FINDINGS: SUPPORT DEVICES: None. HEART: The cardiac silhouette is normal in size. LUNGS/PLEURA: The lungs are clear of focal airspace disease or significant pleural effusion. ADDITIONAL FINDINGS: No additional acute findings. IMPRESSION: 1. No evidence of acute cardiopulmonary process. Signer Name: Cherrie Will MD Signed: 03/02/2021 12:15 PM Workstation Name: [email or web address]
[2021-03-02 12:41] LABS: Basophils # (Auto) 0.1 K/mm3 (0.0-0.1); Basophils % (Auto) 0.5 % (0.0-1.8); Eosinophils # (Auto) 0.2 K/mm3 (0.0-0.4); Eosinophils % (Auto) 1.4 % (0.0-4.3); Hematocrit 36.2 % (30.3-42.9); Hemoglobin 11.5 gm/dl (10.1-14.3); Lymphocytes # (Auto) 1.5 K/mm3 (1.2-5.4); Lymphocytes % (Auto) 12.5 % (13.4-35.0); Mean Corpuscular HGB Conc 32 % (30-34); Mean Corpuscular Volume 78 fl (79-97); Monocytes # (Auto) 0.7 K/mm3 (0.0-0.8); Monocytes % (Auto) 5.7 % (0.0-7.3); Platelet Count 360 K/mm3 (140-440); Red Blood Count 4.64 M/mm3 (3.65-5.03); Red Cell Distribution Width 18.9 % (13.2-15.2)
[2021-03-02] MEDS ORDERED: HALOPERIDOL LACTATE 5 MG/1 ML INJ IM ONE (12:53)
[2021-03-02 13:02] LABS: Alanine Aminotransferase 15 units/L (7-56); Albumin 4.6 g/dL (3.9-5); Blood Urea Nitrogen 10 mg/dL (7-17); Calcium 9.2 mg/dL (8.4-10.2); Hemolysis Index 1
--- NOTE | 2021-03-02 13:04 | Emergency Department Report ---
ED Abdominal Pain HPI - General Chief Complaint: Abdominal Pain Stated Complaint: CHEST/ABD PAIN Time Seen by Provider: 03/02/21 12:49 Source: patient Mode of arrival: Wheelchair Limitations: No Limitations - History of Present Illness Initial Comments: 25-year-old -[place]os[place] female presents to the emergency room complaining of generalized abdominal pain with nausea and vomiting that started 1 hour prior to arrival. Patient states that she has had this before and no one seems to know why she is having this. Patient reports her last menstrual period First couple days of January. Patient does admit that she has smoked marijuana since she is 14 years old and last used yesterday. Patient states that she did democrat last night and had alcohol beverages. Patient denies any fever or chills no diarrhea constipation. Patient had a last visit back in March 2020 for the same complaints. -: This morning Location: diffuse Radiation: none Migration to: no migration Severity scale (0 -10): 10 Quality: cramping Consistency: constant Improves With: nothing Worsens With: nothing Context: other (Drinking alcohol last night and smoking marijuana chronically) Associated Symptoms: nausea, vomiting. denies: diarrhea, fever, chills, constipation, dysuria, hematemesis, hematochezia, melena, hematuria - Related Data LMP Date: 01/27/21 Previous Rx's Medication Instructions Recorded Last Taken Type Dicyclomine [Bentyl] 20 mg PO Q6H PRN #24 tablet 12/31/19 Unknown Rx Famotidine [Pepcid] 20 mg PO Q12H #30 tablet 12/31/19 Unknown Rx Promethazine HCl [Phenergan SUPPOS] 25 mg RC Q6H PRN #12 supp.rect 12/31/19 Unknown Rx Promethazine [Phenergan] 25 mg PO Q6HR PRN #24 tab 12/31/19 Unknown Rx Hydrocortisone [Anucort-HC SUPPOS] 25 mg RC BID #14 supp.rect 03/21/20 Unknown Rx Hydrocortisone [Proctosol-Hc 2.5% 10 applic TP BID #1 crm.pe.desire 03/21/20 Unknown Rx TOP CREAM] Hyoscyamine Subl [Levsin Sl 0.125 0.125 mg SL Q6HR PRN #10 tab 04/23/20 Unknown Rx TAB] Metoclopramide [Reglan] 10 mg PO Q8HR PRN #12 tab 04/23/20 Unknown Rx Chlorhexidine Mouthwash [Peridex] 15 ml MM BID #1 bottle 10/15/20 Unknown Rx Clindamycin [Clindamycin CAP] 300 mg PO Q8HR #30 capsule 10/15/20 Unknown Rx Ketorolac [Toradol] 10 mg PO Q6H PRN #15 tablet 10/15/20 Unknown Rx Lidocaine Viscous 2% 5 ml MM Q3H PRN #120 udc 10/15/20 Unknown Rx Allergies Allergy/AdvReac Type Severity Reaction Status Date / Time ondansetron [From Zofran] AdvReac Vomiting Verified 03/02/21 11:26 Penicillins AdvReac Vomiting Verified 03/02/21 11:26 ED Review of Systems ROS: Stated complaint: CHEST/ABD PAIN Other details as noted in HPI Comment: All other systems reviewed and negative ED Past Medical Hx - Past Medical History Previous Medical History?: No Hx Psychiatric Treatment: Yes (Anxiety) - Surgical History Past Surgical History?: Yes Additional Surgical History: ECTOPIC - Social History Smoking Status: Never Smoker Substance Use Type: None - Medications Home Medications: Home Medications Medication Instructions Recorded Confirmed Last Taken Type Dicyclomine [Bentyl] 20 mg PO Q6H PRN #24 tablet 12/31/19 Unknown Rx Famotidine [Pepcid] 20 mg PO Q12H #30 tablet 12/31/19 Unknown Rx Promethazine HCl [Phenergan SUPPOS] 25 mg RC Q6H PRN #12 supp.rect 12/31/19 Unknown Rx Promethazine [Phenergan] 25 mg PO Q6HR PRN #24 tab 12/31/19 Unknown Rx Hydrocortisone [Anucort-HC SUPPOS] 25 mg RC BID #14 supp.rect 03/21/20 Unknown Rx Hydrocortisone [Proctosol-Hc 2.5% 10 applic TP BID #1 crm.pe.desire 03/21/20 Unknown Rx TOP CREAM] Hyoscyamine Subl [Levsin Sl 0.125 0.125 mg SL Q6HR PRN #10 tab 04/23/20 Unknown Rx TAB] Metoclopramide [Reglan] 10 mg PO Q8HR PRN #12 tab 04/23/20 Unknown Rx Chlorhexidine Mouthwash [Peridex] 15 ml MM BID #1 bottle 10/15/20 Unknown Rx Clindamycin [Clindamycin CAP] 300 mg PO Q8HR #30 capsule 10/15/20 Unknown Rx Ketorolac [Toradol] 10 mg PO Q6H PRN #15 tablet 10/15/20 Unknown Rx Lidocaine Viscous 2% 5 ml MM Q3H PRN #120 udc 10/15/20 Unknown Rx ED Physical Exam - General Limitations: No Limitations General appearance: alert, other (Actively vomiting) - Head Head exam: Present: atraumatic, normocephalic - Eye Eye exam: Present: normal appearance - ENT ENT exam: Present: mucous membranes moist - Neck Neck exam: Present: normal inspection, full ROM - Respiratory Respiratory exam: Absent: accessory muscle use - Cardiovascular Cardiovascular Exam: Present: regular rate - GI/Abdominal GI/Abdominal exam: Present: soft. Absent: distended, tenderness - Extremities Exam Extremities exam: Present: normal inspection, full ROM - Back Exam Back exam: Present: normal inspection, full ROM - Neurological Exam Neurological exam: Present: alert, oriented X3, normal gait - Psychiatric Psychiatric exam: Present: normal affect, normal mood - Skin Skin exam: Present: warm, dry, intact, normal color. Absent: rash ED Course Vital Signs 03/02/21 03/02/21 11:29 12:20 Temperature 98.3 F Pulse Rate 78 Respiratory 22 20 Rate Blood Pressure 116/75 [Right] O2 Sat by Pulse 100 Oximetry - Reevaluation(s) Reevaluation #1: 03/02/21 14:21 Patient reports she feels much better and is ready to be discharged. ED Medical Decision Making - Lab Data Result diagrams: 03/02/21 12:03 03/02/21 12:03 - Medical Decision Making 25-year-old -[place] female presents to the emergency room complaining o f generalized abdominal pain with nausea and vomiting that started 1 hour prior to arrival. Patient states that she has had this before and no one seems to know why she is having this. Patient reports her last menstrual period First couple days of January. Patient does admit that she has smoked marijuana since she is 14 years old and last used yesterday. Patient states that she did democrat last night and had alcohol beverages. Patient denies any fever or chills no diarrhea constipation. Patient had a last visit back in March 2020 for the same complaints. CBC CMP urinalysis hCG lipase UDS INT, 1 L of fluids, Haldol 5 mg IM. Handout given to patient for hyperemesis cannabis. Patient reports she feels much better and is ready to be discharged. Discussion with hyperemesis cannabis. Critical care attestation.: If time is entered above; I have spent that time in minutes in the direct care of this critically ill patient, excluding procedure time. ED Disposition Clinical Impression: Cannabis hyperemesis syndrome concurrent with and due to cannabis abuse Disposition: DC-01 TO HOME OR SELFCARE Is pt being admited?: No Does the pt Need Aspirin: No Condition: Stable Instructions: Cannabinoid Hyperemesis Syndrome, Abdominal Pain (ED) Additional Instructions: Labs are stable. Please refrain from smoking marijuana as this is your cause for your nausea vomiting abdominal pain. Referrals: PRIMARY CARE, [Primary Care Provider[facility]
[2021-03-02 13:15] LABS: Amphetamine Screen,Urine Negative; Benzodiazepines Screen,Urine Negative; Methadone Screen,Urine Negative; Opiate Screen,Urine Negative
[2021-03-02 13:15] LABS: BUN/Creatinine Ratio 14
[2021-03-02 13:17] LABS: Bacteria,Urine 1+ /HPF (Negative); Bilirubin,Urine NEG (Negative); Blood,Urine NEG (Negative); Color,Urine Amber (Yellow); Mucus,Urine 3+ /HPF
[2021-03-02 13:26] LABS: Cannabinoid Screen,Urine Positive; Cocaine Screen,Urine Positive
[2021-03-02] MEDS ORDERED: diphenhydrAMINE 50 MG/ML VIAL IM ONE (14:47)
[2021-03-02] MEDS ORDERED: LORazepam 2 MG/ML VIAL IM ONE (15:00)
[2021-03-02] MEDS ORDERED: LORazepam 2 MG/ML VIAL IV ONE (15:18)
[2021-03-02] MEDS ORDERED: BENZTROPINE 2 MG/2 ML INJ IM ONE (15:19)
[2021-03-02 15:28] LABS: HCG Qualitative,Urine Negative (Negative)
[2021-03-02 15:59] LABS: BUN/Creatinine Ratio 14; Blood Urea Nitrogen 10 mg/dL (7-17); Calcium 8.8 mg/dL (8.4-10.2); Hemolysis Index 5
[2021-03-02 17:17] VITALS: BP 137/83
== END 2021-03-02 18:16 | disposition home or self-care (01) ==
LOC: ED 11:25
DX: F12.188 Cannabis abuse with other cannabis-induced disorder (principal); F41.9 Anxiety disorder, unspecified; Z79.899 Other long term (current) drug therapy; Z88.0 Allergy status to penicillin; Z88.8 Allergy status to other drugs, medicaments and biological substances; Z98.890 Other specified postprocedural states
CPT/HCPCS: 36415; 71045; 80048; 80053; 80307; 81001; 81025; 82550; 83690; 83735; 85025; 87086; 96360; 96372; 99284; J1200; J1630; J2060; J7030; 80320; G0480